=== PATIENT | male | born 1960 | race African-American/Black ===

== ENCOUNTER 2019-02-24 18:22 | Inpatient (IN) ==
[2019-02-24 18:58] LABS: BASO# 0.02 X1000 (0.0-0.2); BASO% 0.3 % (0.0-0.8); EOS# 0.04 X1000 (0.0-0.7); EOS% 0.6 % (0.0-10.0); HEMATOCRIT 38.5 % (42.0-52.0); IMM GRAN# 0.09 X1000 (0.0-0.04); IMM GRAN% 1.2 % (0.0-0.5); LYMPH# 2.47 X1000 (1.2-3.4); MCH 32.7 PG (27-31); MCHC 33.8 g/dL (33-37); MCV 96.7 FL (81-99); MONO# 0.96 X1000 (0.11-0.59); MONO% 13.2 % (1.7-9.3); MPV 10.4 FL (7.4-10.4); NEUT# 3.68 X1000 (1.4-6.5); NEUT% 50.7 % (42.2-75.2); PLT 146 X1000 (130-400); RBC 3.98 XMIL (4.7-6.1); RDW 12.9 % (11.5-14.5); WBC 7.26 X1000 (4.8-10.8)
[2019-02-24 19:08] LABS: BE 3.7 mmoll (-3.0-3.0); BLOOD TYPE ARTERIAL; HCO3-(ACT) 27.6 mmoll (20.0-26.0); METHB 1.1 % (0.0-1.5); O2(CT) 16.1 mL/dL (15.0-23.0); PCO2(98.6) 39 mmHg (35-45); PO2(98.6) 55 mmHg (60-100); SAMPLE BLOOD; SAO2 92.7 % (95.0-100.0); THB 13.1 g/dL (11.5-17.4); pH(98.6) 7.46 (7.35-7.45)
[2019-02-24 19:10] LABS: INR 1.1; PROTIME 14.8 Seconds (11.0-16.0); PTT 32.6 Seconds (22.3-41.8)
[2019-02-24 19:13] LABS: ALLEN TEST YES; MODALITY ROOM AIR; O2HB 87.4 % (95.0-99.0)
[2019-02-24 19:19] LABS: AGAP 12; ALBUMIN 3.6 g/dL (3.5-5.0); ALKALINE PHOSPHATASE 82 U/L (32-122); BUN 15 mg/dL (8-22); CALCIUM 9.2 mg/dL (8.8-10.2); CHLORIDE 103 mmol/L (98-107); CK PROFILE 105 U/L (24-204); COSMO 280; CREATININE 0.8 mg/dL (0.7-1.2); ESTIMATED GFR > 60; GLUCOSE 120 mg/dL (70-104); GOT 15 U/L (10-34); GPT 15 U/L (10-44); POTASSIUM 4.2 mmol/L (3.5-5.1); SODIUM 139 mmol/L (136-145); TCO2 24 mmol/L (25-35)
[2019-02-24 19:32] LABS: URINE SOURCE CLEAN CATCH
[2019-02-24] MEDS ORDERED: SOLU-MEDROL IV ONE (19:33)
--- NOTE | 2019-02-24 19:39 | PROVIDER DOCUMENTATION ---
This chart was entered by Britt Montgomery Scribe, acting as scribe for Mary Perry CRNP. HPI-General Adult - General Chief Complaint: SEPSIS ALERT - P Stated Complaint: SOB Time Seen by Provider: 02/24/19 18:31 Source: patient Allergies/Adverse Reactions: Patient Allergies Allergy/AdvReac Type Severity Reaction Status Date / Time No Known Allergies Allergy Verified 02/24/19 18:29 Home Medications: Home Medication List Medication Instructions Recorded Confirmed Last Taken Type NK [No Home Medications] 02/24/19 02/24/19 Unknown History - History of Present Illness -Gen Adult Nature of Presenting Problems: pt is a 59 yr old male presenting with left lower rib pain, cough and shortness of breath. pt seen earlier today for same, however declined blood work. pt dx with pneumonia, received Rocephin IM. pt reports upon returning home this afternoon pain persists, admits pain with inspiration and guarded breathing. pt denies any other complaints. when seen earlier pt refused blood work or admi ssion. pt admits cough x 1 week, rib pain x 1 day. denies fever or known rib injury. upon examination, patient is pausing during speaking and tachypneic. Location of Pain/Injury: reports: chest (left lower rib pain) Pain Radiation: reports: no radiation Quality of Pain: reports: pressure, sharp Severity: reports: severe Onset/Duration: reports: 1 week ago (cough), this morning (rib pain) Timing: reports: still present Context/Activities at Onset: reports: light activity Modifying Factors: improves with: other medication (mucinex without relief). worse with: lying down (difficulty breathing) Associated Symptoms: reports: chest pain (L lower), cough, sinus congestion/drainage, shortness of breath, pain with inspiration. denies: arm pain, back/neck pain, EENT symptoms, fever/chills, nausea, vomiting Similar Symptoms Previously?: Yes Recently seen or treated by another doctor?: Yes (seen in ED this morning) Review of Systems - Adult - REVIEW OF SYSTEMS - ADULT Constitutional: denies: chills, fever Eyes: reports: no symptoms reported Ears, Nose, Mouth & Throat: reports: sinus problem. denies: ear pain, throat pain Cardiovascular: reports: chest pain (L lower rib). denies: palpitations, syncope Respiratory: reports: see HPI, cough, dyspnea on exertion, pleurisy, shortness of breath Gastrointestinal: reports: no symptoms reported. denies: abdominal pain, diarrhea, nausea, vomiting Genitourinary: reports: no symptoms reported Musculoskeletal: reports: see HPI, bone pain (left rib pain) Integumentary: reports: no symptoms reported Neurological: denies: dizziness/vertigo, headache/migraines, syncope Psychiatric: reports: no symptoms reported Endocrine: reports: no symptoms reported Past History - Adult - PAST MEDICAL HISTORY-ADULT Review of Records: reports: Nursing Assessment Review, Medications Reviewed Major Childhood Illnesses: reports: denies history Cardiovascular: reports: HTN Respiratory: reports: COPD Gastrointestinal: reports: GERD, hepatitis (C), other (anal fissure) Obstetrical/Gynecological: reports: denies history Genitourinary: reports: denies history Musculoskeletal: reports: neck/back injury Neurological: reports: denies history Endocrine/Immune: reports: denies history Other Conditions: reports: denies history - PRIOR SURGERIES/PROCEDURES Surgical/Procedure History: reports: other (anal fissure) - IMMUNIZATION STATUS Childhood Immunizations: See Nurse Assessment Flu Vaccine: See Nurse Assessment - FAMILY HISTORY Family History: reviewed, not pertinent - SOCIAL HISTORY Smoking: cigarettes Provider spent 3-5 mins advising pt. on dangers of tobacco.: Discussed manners to quit use, and f/u contacts for add'l counseling. Substance Use: alcohol Alcohol Use Frequency: twice a week Living Situation: alone Physical Exam-General - PHYSICAL EXAM-ADULT Initial Vital Signs Reviewed: Yes - CONSTITUTIONAL General Appearance: alert, mild distress. negative: lethargic, slow to respond, obtunded - EYES Eyes: PERRL/EOMI, pink conjunctivae. negative: EOM palsy, scleral icterus - HEAD, EARS, NOSE, MOUTH & THROAT HENMT: normocephalic/atraumatic, moist mucous membranes - NECK Neck: non-tender, full range of motion, supple, normal inspection - RESPIRATORY Respiratory: lungs clear, normal breath sounds, pain on inspiration, splinting, increased rate, other (left anterior lower rib tenderness). negative: crackles, rales, rhonchi, stridor, wheezing, prolonged expiration, retractions - CARDIOVASCULAR Cardiovascular: tachycardia (103) - LYMPHATIC Lymphatic: no adenopathy - MUSCULOSKELETAL Back Exam: normal inspection Extremity: normal range of motion, non-tender, normal gait, normal inspection - SKIN Integumentary: normal color, warm/dry. negative: cyanosis, jaundice, mottled, pallor - NEUROLOGIC Neurologic: grossly normal, no motor/sensory deficits. negative: abnormal gait, aphasia, EOM palsy - PSYCHIATRIC Psych/Mental Status: normal mood/affect, normal thought content, normal thought process, oriented x 3 Progress - PLAN OF CARE/RESULTS Progress/Plan/Lab Results: Vital Signs - 8 hr 02/24/19 18:24 Temperature 98.2 F Pulse Rate 103 H Respiratory Rate 24 Blood Pressure 119/95 O2 Sat by Pulse Oximetry 96 Orders Category Date Time Status Cardiac Monitoring DIRECTED Care 02/24/19 18:32 Active IV Insertion ORDERED Care 02/24/19 18:32 Active Notify MD of + Sepsis Screen NOW Care 02/24/19 18:32 Active Notify Physician As Ordered Care 02/24/19 18:32 Active Oxygen Therapy- ED Nursing DIRECTED Care 02/24/19 18:45 Active ABG [RESP] Routine Lab 02/24/19 18:45 Ordered BLOOD CULTURE [BLDCUL] Stat Lab 02/24/19 18:32 Uncollected CBC WITH DIFF [HEME] Stat Lab 02/24/19 18:32 Uncollected CK PROFILE [SP CHEM] Stat Lab 02/24/19 18:32 Uncollected COMPREHENSIVE METABOLIC PANEL [CHEM] Stat Lab 02/24/19 18:32 Uncollected LACTATE, PLASMA [CHEM] Lab 02/24/19 18:45 Uncollected LACTATE, PLASMA [CHEM] Lab 02/24/19 21:45 Uncollected LACTATE, PLASMA [CHEM] Lab 02/25/19 00:45 Uncollected PROTIME WITH INR [COAG] Stat Lab 02/24/19 18:32 Uncollected PTT [COAG] Stat Lab 02/24/19 18:32 Uncollected TROPONIN T Stat Lab 02/24/19 18:32 Uncollected URINALYSIS W/POSS RFLX CULT [URINALYSIS] Stat Lab 02/24/19 18:32 Uncollected Oxygen Device Stat Oth 02/24/19 18:32 Active Patient's O2 saturation on RA will decrease to 90-91% while talking and patient appears short of breath. RA ABG obtained with pO2 55% on RA. Patient placed on 2L NC with O2 saturation 95%. Imaging results, lab results, and need for admission discussed with patient who agrees with and verbalizes understanding. Result Diagrams: 02/24/19 18:39 02/24/19 18:39 - EKG 1 Time of EKG reading by physician:: 18:40 EKG Read and Signed by:: Gatito Belcher EKG Interpretation (*Must complete 3 of following elements*): Abnormal (can not rule out septal infarct-age undetermined) Rate: 93 Rhythm: nsr [place]: left QRS: RBB (incomplete RBBB), LVH (voltage criteria met) - XRAY 1 XRAY Study: Chest, Ribs Impression: See EMR Report ([facility] - [address] [facility], [address] [address] [facility] - [address] [place] [address] Department of Imaging Patient: [facility] Date: 02/24/19#: [id number] : 1960DM Status: PRE ERAcct#: [id number] Age/Sex: 59/MRoom/Bed: Loc: P.ED Ordering Physician: Gatito Belcher MD Family Physician: Corwin Carrasco MD Reason for Procedure: cough/pain Signed EXAM: RIBS UNILAT W/PA CHEST LEFT - 02/24/2019 HISTORY: cough/pain TECHNIQUE: Left RIBS and PA chest five views COMPARISON: 05/20/2017 FINDINGS: There is minimal deformity of the anterior lateral left seventh rib of uncertain significance, although this could possibly relate to minimal subacute fracture. There is no other left rib lesion identified. Heart size is normal. There is mild tortuosity of the thoracic aorta. Inspiration is mildly shallow. There are mild COPD changes. There is left lower lung consolidation compatible with pneumonia. There is subsegmental atelectasis at the right base. IMPRESSION: Questionable minimal subacute fracture of anterior lateral left seventh rib. Mild COPD changes. Left lower lung consolidation compatible with pneumonia. Follow-up after treatment is recommended to ensure resolution. Electronically signed by Tommy Doyle 02/24/2019 2:43 PM 02/24/19 1443 Interpreting Physician: Tommy Doyle MD Dictated Date/Time: 02/24/19 1437 cc: Gatito Belcher MD; Corwin Carrasco MD) - CONSULTS/PCP/HOSPITALIST Notification #1 *Consult/PCP/Hospitalist*: Dr. Diana, Hospitalist Time Discussed: 20:17 Reason/Comments: PNA; SOB Consult Disposition: Admit Departure - Departure Date of Disposition Decision: 02/24/19 Time of Disposition Decision: 20:19 DIAGNOSIS: Hypoxemia, Shortness of breath, Rib pain on left side PNA (pneumonia) Qualifiers: Pneumonia type: due to unspecified organism Laterality: left Lung location: lower lobe of lung Qualified Code(s): J18.1 - Lobar pneumonia, unspecified organism Disposition: ADMITTED INPATIENT 09 Certified Medical Emergency: Emergent Condition: Stable - Critical Care Note This patient required my direct & personal management of CC.: No Attestation - Physician/ BROOKE Attestation Patient care was provided by Advanced Practice Provider:: Yes Advanced Practice Provider:: Mary Perry Advanced Practice Provider documentation review:: The Mid-level provider documentation, treatment plan and medical decision making was reviewed by the physician who agrees with all treatment and medical decision making by the P. The physician spent face to face time with patient:: No Advanced Practice Provider documentation review:: Supervising physician onsite and consulted in the evaluation and care of this patient. The physician did not have a face to face encounter with the patient. This chart was documented by the indicated scribe, (Britt Montgomery Scribe) and accurately reflects the services I performed and decisions made by me, Mary Perry CRNP, as attested by the provider's signature.
[2019-02-24 19:40] LABS: BILIRUBIN URINE NEGATIVE (NEGATIVE); BLOOD URINE NEGATIVE (NEGATIVE); COLOR YELLOW; GLUCOSE URINE NEGATIVE (NEGATIVE); KETONE URINE NEGATIVE (NEGATIVE); LEUKOCYTES URINE NEGATIVE (NEGATIVE); NITRITE URINE NEGATIVE (NEGATIVE); PROTEIN URINE TRACE mg/dL (NEGATIVE); SP GRAVITY URINE 1.025; TURBIDITY URINE CLEAR (CLEAR); UROBILINOGEN URINE >12 mg/dL (NORMAL)
[2019-02-24 19:53] LABS: UR EPITHELIAL CELLS <10 /HPF (<10); URINE BACTERIA 1+ /HPF; URINE CASTS NONE SEEN; URINE CRYSTALS NONE SEEN; URINE SMALL ROUND CELLS NONE SEEN; URINE YEAST NONE SEEN
[2019-02-24] MEDS ORDERED: MORPHINE IV ONE (20:26)
[2019-02-24] MEDS ORDERED: LIDODERM TOP ONE (20:26)
[2019-02-24] MEDS ORDERED: FLU VACCINE IM ONE (23:47)
[2019-02-25] MEDS: NORCO-10 PO PRN ×4 (00:54→20:58)
[2019-02-25 06:35] LABS: BASO# 0.01 X1000 (0.0-0.2); BASO% 0.2 % (0.0-0.8); HEMATOCRIT 40.9 % (42.0-52.0); HEMOGLOBIN 13.5 g/dL (14.0-18.0); IMM GRAN# 0.05 X1000 (0.0-0.04); IMM GRAN% 1.2 % (0.0-0.5); LYMPH# 1.01 X1000 (1.2-3.4); LYMPH% 24.3 % (20.5-51.1); MCH 32.1 PG (27-31); MCV 97.4 FL (81-99); MONO# 0.23 X1000 (0.11-0.59); MONO% 5.5 % (1.7-9.3); MPV 11.1 FL (7.4-10.4); NEUT# 2.85 X1000 (1.4-6.5); NEUT% 68.8 % (42.2-75.2); PLT 130 X1000 (130-400); RDW 12.7 % (11.5-14.5); WBC 4.15 X1000 (4.8-10.8)
[2019-02-25 07:17] LABS: AGAP 13; ALBUMIN 3.4 g/dL (3.5-5.0); ALKALINE PHOSPHATASE 89 U/L (32-122); BUN 17 mg/dL (8-22); CALCIUM 9.1 mg/dL (8.8-10.2); CHLORIDE 102 mmol/L (98-107); COSMO 281; CREATININE 0.8 mg/dL (0.7-1.2); ESTIMATED GFR > 60; GLUCOSE 203 mg/dL (70-104); GOT 14 U/L (10-34); GPT 15 U/L (10-44); POTASSIUM 4.2 mmol/L (3.5-5.1); SODIUM 137 mmol/L (136-145); TCO2 23 mmol/L (25-35); TOTAL PROTEIN 7.6 g/dL (6.3-8.3)
[2019-02-25] MEDS ORDERED: TYLENOL PO PRN (09:04)
[2019-02-25] MEDS: DUONEB (A & A) INH SCH ×4 (11:06→23:25)
--- NOTE | 2019-02-25 11:55 | HISTORY AND PHYSICAL ---
CHIEF COMPLAINT: Left-sided rib pain, shortness of breath. HISTORY OF PRESENT ILLNESS: Mr. Victoriano Gonzales is a 59-year-old, male with a medical history of GERD, hepatitis C, and hypertension, who states that since Friday, and today is , at least 4 days now that he has had sinus problems, initially is how it started out but then started developing left pleuritic rib pain with shortness of breath but on Friday, the cold symptoms. He was outside during the day when it was cold. Went into the house, to work on Friday, a cold house that was not heated. That continued until Friday. He finally brought a heater into the cold house that he was working on but states that he went out to his car to get warm and that is when he started having the chest pains. That was yesterday. Chest pains were left. They are pleuritic in nature. It felt like stabbing whenever he would take in deep breaths, He had been coughing up morales-brown phlegm, having chills and subjective fever. Presented here. Was diagnosed with left lower lobe pneumonia. Was given Rocephin and then he went home but after going home, the pain continued and he re-presented. Now, he is admitted to the medical floor with treatment of left lower lobe pneumonia and symptoms are starting to resolve. PAST MEDICAL HISTORY: 1. GERD. 2. Hepatitis C, 5 years ago diagnosis. 3. Hypertension. 4. Chronic neck and back pain. Apparently, he said since 2004, he has 3 deteriorating disks with 2 pinched nerves. 5. COPD. SURGICAL HISTORY: 1. Anal fissure repair. 2. Colonoscopy, EGD 5 years ago. SOCIAL HISTORY: Half pack per day smoker since the age of 10. He drinks about 1 or 2 beers a week. He smokes marijuana daily to every other day. 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 History of IV drug abuse being cocaine. He said at least 38 years ago is when he quit and apparently lived with the hepatitis C with the first diagnosis that being 5 years ago. FAMILY HISTORY: Mother diabetes, hypertension, high cholesterol. Father, diabetes but he lived to be 92 years old. ALLERGIES: No known drug allergies. HOME MEDICATIONS: None but he states he is supposed to be on lisinopril. REVIEW OF SYSTEMS: Fourteen point review of systems are complete and all were negative except for those mentioned above in the HPI. PHYSICAL EXAMINATION: VITAL SIGNS: Temperature 97.9 degrees, heart rate 60, respiratory rate 18, blood pressure 164/81, O2 saturation 100% on room air. GENERAL: Mr. Victoriano Gonzales is a 59-year-old, male. He is in no acute distress. He is able to answer questions appropriately. HEENT: Atraumatic, normocephalic. Pupils equal, round, reactive to light. Extraocular movements intact. Mucous membranes are moist. NECK: Trachea midline. CARDIOVASCULAR: S1, S2. Regular rate and rhythm. No rubs, gallops, murmurs. No lower extremity edema. There are +2 dorsalis and radial pulses. Negative JVD or carotid bruits. PULMONARY: Clear to auscultate bilateral breath sounds. No accessory muscle use or work of breathing noted. GI: Soft, nontender, nondistended. Positive bowel sounds x4. EXTREMITIES: Moves all extremities equally with full range of motion. NEUROLOGIC: A and O x3. Follows commands. Sensory is intact. SKIN: Warm, dry, intact. PRIMARY CARE PROVIDER: Dr. Diana. LABORATORY DATA: White blood cells 4000, hemoglobin 13, hematocrit 40, platelet count 130,000. ABGs on room air, pH 7.46, pCO2 of 39, PO2 of 55, bicarb 27, base excess 3.7, saturation 87%. Lactate 1.1. Sodium 137, potassium 4.2, BUN 17, creatinine 0.8, glucose 203, calcium 9.1. Cardiac enzymes negative. Albumin 3.4. Lactate 1.5, 1.5, and 2.2. Urinalysis, trace protein, greater than 12 urobilinogen, 1+ bacteria, otherwise negative. IMAGING: Chest x-ray on a different AH number but it was yesterday, so had a chest x-ray with ribs on the . Questionable minimal subacute fracture of the anterolateral left 7th rib, left lower lung consolidation compatible with pneumonia. Also some mild COPD changes. EKG, normal sinus rhythm, incomplete right bundle branch block. Rate is 93. QTc was 450. ASSESSMENT/PLAN: 1. Left-sided rib pain and pleuritic pain, worse with inspiration. He denies any falls but on imaging, it does show the 7th rib with a possible hairline fracture. He has got [place] for pain control and for pain control of the pleuritic inspired pain. 2. Left lower lobe pneumonia. He is on Rocephin, nebulizers. He requested Mucinex so that was added. 3. Chronic obstructive pulmonary disease. Patient is unaware of this diagnosis. Apparently, it is on chest x-ray but he denies any symptoms of ever having chronic obstructive pulmonary disease and there are no obvious signs of exacerbation but he is on low-dose steroids. 4. Gastroesophageal reflux disease. No complaints of symptoms at this time. 5. Tobacco abuse. Started him on a nicotine patch. 6. Hypertension. Continued with lisinopril. 7. Deep venous thrombosis prophylaxis. Lovenox. 8. History of hepatitis C. Dictated by LUIS A Marx for Carlos Diana MD cc: LUIS A Marx MD
[2019-02-25] MEDS: NS 1,000 ML IV SCH (13:00)
[2019-02-25] MEDS: LOVENOX SUBQ SCH (13:00)
[2019-02-25] MEDS: ROCEPHIN 1 GM in NS 50 ML IV SCH (13:00)
[2019-02-25] MEDS: NICODERM PATCH TD SCH (13:01)
[2019-02-25] MEDS: SOLU-MEDROL IV SCH ×2 (13:01→23:47)
[2019-02-25] MEDS: MUCINEX PO SCH ×2 (13:01→20:52)
[2019-02-25] MEDS: PRINIVIL PO SCH (13:02)
[2019-02-25] MEDS ORDERED: MAALOX PLUS LIQUID PO ONE (14:43)
--- NOTE | 2019-02-25 15:53 | HISTORY AND PHYSICAL ---
ADDENDUM: Patient seen and examined by myself. Full note dictated and discussed with nurse practitioner. Patient notes that he has a history of hypertension but has not been taking his lisinopril. He also has a history of hepatitis C. He presented to the hospital after having some left rib pain. He apparently was seen, went home, and then came back. When his labs were drawn, he was noted to be hypoxic. Chest x-ray showed left lower lobe pneumonia and therefore we are going to admit him to the hospital, place him on oxygen, fluids, antibiotics, and we will follow. We will also restart his lisinopril for his blood pressure. cc: Carlos Diana MD
[2019-02-25] MEDS: PULMICORT INH SCH (19:22)
[2019-02-25] MEDS ORDERED: TUMS EXTRA STRENGTH PO ONE (20:30)
[2019-02-25] MEDS ORDERED: SEROQUEL PO SCH (23:45)
[2019-02-26] MEDS: DUONEB (A & A) INH SCH ×3 (03:18→11:42)
[2019-02-26] MEDS: NS 1,000 ML IV SCH (04:33)
[2019-02-26 05:53] VITALS: BP 156/83
[2019-02-26] MEDS ORDERED: PRILOSEC PO SCH (07:00)
[2019-02-26 07:01] LABS: BANDS 3 % (0-1); BASO# 0.01 X1000 (0.0-0.2); BASO% 0.2 % (0.0-0.8); HEMATOCRIT 41.1 % (42.0-52.0); HEMOGLOBIN 13.6 g/dL (14.0-18.0); IMM GRAN# 0.03 X1000 (0.0-0.04); IMM GRAN% 0.5 % (0.0-0.5); LARGE PLATELETS OCCASIONAL; LYMPH# 1.34 X1000 (1.2-3.4); LYMPH% 23.1 % (20.5-51.1); LYMPHS 22 % (21-51); MCH 32.2 PG (27-31); MCHC 33.1 g/dL (33-37); MCV 97.2 FL (81-99); MONO 1 % (1-9); MONO# 0.35 X1000 (0.11-0.59); MPV 10.3 FL (7.4-10.4); NEUT# 4.06 X1000 (1.4-6.5); NEUT% 70.2 % (42.2-75.2); PLT 166 X1000 (130-400); RBC 4.23 XMIL (4.7-6.1); RDW 12.5 % (11.5-14.5); SEGS 74 % (42-75); STOMATOCYTES 1+; WBC 5.79 X1000 (4.8-10.8)
[2019-02-26 07:04] LABS: AGAP 12; ALBUMIN 3.6 g/dL (3.5-5.0); ALKALINE PHOSPHATASE 86 U/L (32-122); BUN 11 mg/dL (8-22); CALCIUM 9.3 mg/dL (8.8-10.2); CHLORIDE 105 mmol/L (98-107); COSMO 281; CREATININE 0.7 mg/dL (0.7-1.2); ESTIMATED GFR > 60; GLUCOSE 165 mg/dL (70-104); GOT 21 U/L (10-34); GPT 23 U/L (10-44); POTASSIUM 4.4 mmol/L (3.5-5.1); SODIUM 139 mmol/L (136-145); TCO2 22 mmol/L (25-35); TOTAL BILIRUBIN < 0.15 mg/dL (0.20-1.00); TOTAL PROTEIN 7.8 g/dL (6.3-8.3)
[2019-02-26 07:09] LABS: HEMOGLOBIN A1C 5.5 % (4.8-6.0)
--- NOTE | 2019-02-26 07:24 | Diag Imaging Result Doc PS360 ---
EXAM: CHEST-PORTABLE HISTORY: Pneumonia TECHNIQUE: Single view COMPARISON: 02/24/2019 FINDINGS: The lungs are well expanded. No cardiomegaly. Mild increased interstitial markings. Infiltrates in the lower left lung are less pronounced. No pleural effusions identified. No pneumothoraces. IMPRESSION: Interval improvement Electronically signed by Ehsan Ortiz 02/26/2019 7:21 AM
[2019-02-26] MEDS: PULMICORT INH SCH (08:28)
[2019-02-26] MEDS: PRINIVIL PO SCH (08:42)
[2019-02-26] MEDS: NICODERM PATCH TD SCH (08:42)
[2019-02-26] MEDS: MUCINEX PO SCH (08:42)
[2019-02-26] MEDS: LOVENOX SUBQ SCH (08:42)
[2019-02-26] MEDS: ROCEPHIN 1 GM in NS 50 ML IV SCH (08:42)
--- NOTE | 2019-02-26 09:38 | DISCHARGE SUMMARY ---
ADMISSION DATE: 02/24/2019 DISCHARGE DATE: 02/26/2019 DISCHARGE DIAGNOSES: 1. Left-sided rib pain secondary to pneumonia. 2. Left lower lobe pneumonia. 3. Chronic obstructive pulmonary disease with mild exacerbation. 4. Chronic reflux. 5. Chronic tobacco abuse. 6. Hypertension. CONSULTATIONS: None. PROCEDURES: None. BRIEF HOSPITAL COURSE: The patient is a 59-year-old male, who presented to the hospital with increased cough, congestion, shortness of breath and left-sided rib pain. He subsequently diagnosed with pneumonia, was placed on antibiotics, oxygen and breathing treatments as needed. Thankfully, he continued to improve, and on discharge he is awake, alert. He states he is feeling pretty close back to his usual baseline. Notes his left-sided chest pain has resolved. DISPOSITION: Greater than 30 minutes was spent in total care. Patient will discharge home on antibiotics. We did discuss with him the importance of stopping smoking. We are going to discharge him with nicotine patch. He will follow up outpatient with his primary care in 1 to 2 weeks. cc: Carlos Diana MD
--- NOTE | 2019-03-01 08:57 | EKG Report ---
Test Performed on : 02/24/2019 6:40:52 PM Test Reason : SOB Blood Pressure : / mmHG Vent. Rate : 093 BPM Atrial Rate : 093 BPM P-R Int : 148 ms QRS Dur : 112 ms QT Int : 362 ms P-R-T Axes : 038 -33 026 degrees QTc Int : 450 ms Normal sinus rhythm. Left axis deviation Incomplete right bundle branch block Voltage criteria for left ventricular hypertrophy Cannot rule out Septal infarct (cited on or before 02-SEP-2012) Abnormal ECG When compared with ECG of 02-SEP-2012 13:48, Questionable change in initial forces of Septal leads Nonspecific T wave abnormality has replaced inverted T waves in Inferior leads Nonspecific T wave abnormality now evident in Lateral leads Unconfirmed Result
== END 2019-02-26 12:17 | disposition home or self-care (01) | DRG 190 ==
LOC: P.ED 18:22 → P.MEDSURG 21:01
PROVIDERS: ATTEND Family Medicine